=== PATIENT | male | born 1950 | race American Indian/Alaskan Native ===

== ENCOUNTER 2021-01-28 12:11 | Emergency (ER) | payer SELFPAY ==
[2021-01-28] MEDS ORDERED: DEXTROSE 50% IN WATER (25GM) 50 ML SYRINGE IV ONE ×3 (12:30→17:03)
--- NOTE | 2021-01-28 12:34 | Emergency Department Report ---
ED Altered Mental Status HPI - General Stated Complaint: UNRESPONSIVE Time Seen by Provider: 01/28/21 12:21 - History of Present Illness Initial Comments: Chief complaint: Unresponsive low blood sugar HPI: This is a 70-year-old male with history of insulin-dependent diabetes, bilateral AKA who presents with decreased level of consciousness. Patient be came unresponsive shortly after taking insulin and eating food. Blood sugar per family members 28. Blood sugar per EMS 34. Patient's unresponsive. EMS unable to obtain IV access. Patient recently had PICC line removed from right upper extremity. Intraosseous device not placed in the lower extremity since patient's legs were both amputated above the knee. Patient receives care at [facility]. Medications Gabapentin 400 mg 3 times daily Tamsulosin 0.4 mg daily Omeprazole 20 mg daily Melatonin 3 mg at bedtime Atorvastatin 10 mg daily Ciprofloxacin 500 mg twice daily Spiriva MDI Complaint: altered mental status, decreased responsiveness -: Sudden, This morning Severity: severe Consistency of Symptoms: constant Context: diabetes - Related Data Allergies Allergy/AdvReac Type Severity Reaction Status Date / Time No Known Allergies Allergy Unverified 07/24/16 16:36 ED Review of Systems ROS: Stated complaint: UNRESPONSIVE Other details as noted in HPI Comment: All other systems reviewed and negative (Review of systems obtained after patient's mentation normalized) Constitutional: denies: chills, fever Respiratory: denies: cough, shortness of breath Gastrointestinal: denies: abdominal pain ED Past Medical Hx - Past Medical History Previous Medical History?: Yes Hx Hypertension: Yes Hx Diabetes: Yes - Surgical History Past Surgical History?: Yes Additional Surgical History: L knee, L eye, skin grafts bilateral AKA - Social History Smoking Status: Current Every Day Smoker Substance Use Type: None ED Physical Exam - General Limitations: Altered Mental Status General appearance: other (Altered, rapid breathing, contracted right upper extremity, tongue protruding, GCS of 3) - Head Head exam: Present: atraumatic, normocephalic - Eye Eye exam: Present: normal appearance - ENT ENT exam: Present: mucous membranes moist - Neck Neck exam: Present: normal inspection - Respiratory Respiratory exam: Present: respiratory distress. Absent: wheezes, rales, rhonchi - Cardiovascular Cardiovascular Exam: Present: normal rhythm, tachycardia, normal heart sounds. Absent: systolic murmur, diastolic murmur, rubs, gallop - GI/Abdominal GI/Abdominal exam: Present: soft, normal bowel sounds. Absent: distended, tenderness, guarding, rebound - Rectal Rectal exam: Present: deferred - Extremities Exam Extremities exam: Present: other (Bilateral AKA, well-healed stumps) - Neurological Exam Neurological exam: Present: altered - Psychiatric Psychiatric exam: Present: other (GCS 3, not making eye contact,) - Skin Skin exam: Present: warm, dry, intact, normal color, rash ED Course Vital Signs 01/28/21 01/28/21 01/28/21 12:26 12:30 12:46 Pulse Rate 94 H 90 Respiratory 24 24 13 Rate Blood Pressure 103/77 99/63 O2 Sat by Pulse 100 100 Oximetry - IO Right Humerus Consent Obtained: emergent situation Time Out Performed: No IO Instrument Used to Penetrate the Cortex: battery powered IO drill Patient Tolerated Procedure: well Complications: none - Lab Data Result diagrams: 01/28/21 12:47 Lab Results 01/28/21 01/28/21 Range/Units 12:18 12:47 Sodium 138 (137-145) mmol/L Potassium 4.3 (3.6-5.0) mmol/L Chloride 101.2 (98-107) mmol/L Carbon Dioxide 23 (22-30) mmol/L Anion Gap 18 mmol/L BUN 14 (9-20) mg/dL Glucose 150 H (75-100) mg/dL POC Glucose 105 (70-105) mg/dL Calcium 8.2 L (8.4-10.2) mg/dL Laboratory Results - last 24 hr 01/28/21 01/28/21 12:18 12:47 Sodium 138 Potassium 4.3 Chloride 101.2 Carbon Dioxide 23 Anion Gap 18 BUN 14 Glucose 150 H POC Glucose 105 Calcium 8.2 L - Medical Decision Making Altered mental status due to severe hypoglycemia. Blood glucose readings 28 and 34 at home and EMS respectively. I immediately inserted IO into the right humerus. Patient received 1 ampoule of dextrose. Within 30 seconds, patient became more alert. Blood sugar 105 after initial ampule. Patient received a second ampule of dextrose through IO. With normalization of blood sugar after 20 minutes of observation emergency department, patient is able to give full history. He is alert and oriented x4. He denies any physical complaints. He does not recall EMS transport. After eating a meal and drinking juice, patient states that "I feel great." He lives with his nurse. He stated that he was in the hospital 1 week ago for low blood sugar. I encouraged him to hold his home insulin for today. I encouraged him to take his blood sugar in the morning before taking his insulin dose. Chemistry revealed normal kidney function. Vital signs are stable. Patient is discharged home. Critical Care Time: Yes Critical care time in (mins) excluding proc time.: 40 Critical care attestation.: If time is entered above; I have spent that time in minutes in the direct care of this critically ill patient, excluding procedure time. 40 minutes of critical care time excluding procedures were used in the care of the patient. Prior to the arrival, I requested IL device to be inserted. EMS personnel explained that patient has had both legs amputated above the knee. I suggested humeral approach for IO device. I came immediately to the bedside upon patient's arrival. Patient did not have intraosseous or intravenous access. I obtained history from EMS at the bedside. I discussed treatment plan with the nursing team members. I reviewed electronic record. I kept the family members informed. Patient required multiple interventions and reassessments. ED Disposition Clinical Impression: Hypoglycemia due to insulin, Hypoglycemia due to type 2 diabetes mellitus, Al tered mental state Disposition: DC-01 TO HOME OR SELFCARE Is pt being admited?: No Does the pt Need Aspirin: No Condition: Stable Instructions: Diabetes Mellitus Type 2 in Adults (ED) Additional Instructions: Please do not take your morning dose of insulin if your morning blood sugar reading is normal. Low blood sugar is much more dangerous than mildly elevated blood sugar.
[2021-01-28 13:19] LABS: Blood Urea Nitrogen 14 mg/dL (9-20); Calcium 8.2 mg/dL (8.4-10.2); Hemolysis Index 17
[2021-01-28 13:42] LABS: BUN/Creatinine Ratio 23
[2021-01-28 15:07] VITALS: BP 98/61
== END 2021-01-28 15:00 | disposition home or self-care (01) ==
LOC: ED 12:11
DX: E11.649 Type 2 diabetes mellitus with hypoglycemia without coma (principal); R41.82 Altered mental status, unspecified; I10 Essential (primary) hypertension; F17.200 Nicotine dependence, unspecified, uncomplicated; Z98.890 Other specified postprocedural states
CPT/HCPCS: 36415; 80048; 82962; 96374; 96375